=== PATIENT | male | born 1995 | race Two or more races ===

== ENCOUNTER 2020-07-16 18:02 | Emergency (ER) | payer OTHER ==
[~2020-07-16] VITALS: Ht 177.8 cm; Wt 81.6 kg
[2020-07-16] MEDS ORDERED: INTESTINEX680 M1 PO (19:59)
[2020-07-16] MEDS ORDERED: CLINDAMYCI75 MG/5 ML PO (19:59)
== END 2020-07-16 20:11 ==
LOC: ER 18:02
DX: L02.412 Cutaneous abscess of left axilla (principal); B95.61 Methicillin susceptible Staphylococcus aureus infection as the cause of diseases classified elsewhere